=== PATIENT | female | born 1965 | race Caucasian/White ===

== ENCOUNTER → 2016-11-23 19:26 | Outpatient (CLI) | payer MEDICAID | END | disposition home or self-care (01) | LOC: D.MAMMO 14:00 | DX: Z12.31 Encounter for screening mammogram for malignant neoplasm of breast (principal) ==

== ENCOUNTER 2017-03-13 12:49 | Emergency (ER) | payer MEDICAID | END 2017-03-13 15:30 | disposition home or self-care (01) | LOC: D.ER 12:49 | DX: R09.81 Nasal congestion (principal); J06.9 Acute upper respiratory infection, unspecified; J20.9 Acute bronchitis, unspecified; R05 Cough ==

== ENCOUNTER → 2017-04-13 17:08 | Outpatient (CLI) | payer MEDICAID | END | disposition home or self-care (01) | LOC: D.MAMMO 10:30 | DX: R92.8 Other abnormal and inconclusive findings on diagnostic imaging of breast (principal) ==

== ENCOUNTER 2019-10-27 20:38 | Emergency (ER) | payer SELFPAY ==
[~2019-10-27] VITALS: Ht 165.1 cm; Wt 100.0 kg
[2019-10-27 20:43] VITALS: Ht 165.1 cm; Wt 100.0 kg
[2019-10-27] MEDS ORDERED: CLEOCIN HCL300 MG PO (21:41)
[2019-10-27 21:55] VITALS: BP 134/90
== END 2019-10-27 21:55 | disposition home or self-care (01) ==
LOC: D.ER 20:38
DX: L03.114 Cellulitis of left upper limb (principal); J45.909 Unspecified asthma, uncomplicated; Z72.0 Tobacco use; W22.8XXA Striking against or struck by other objects, initial encounter; Y93.9 Activity, unspecified; Y92.9 Unspecified place or not applicable